=== PATIENT | female | born 1930 | race Hispanic/Latino ===

== ENCOUNTER 2018-04-13 12:44 | Observation (INO) | payer MEDICARE ==
[~2018-04-13] VITALS: Ht 149.9 cm; Wt 89.9 kg
[2018-04-13 00:20] VITALS: BP 123/61
[2018-04-13 13:09] LABS: BASOPHILS % (AUTO) 0.4 % (0.0-5.0); EOSINOPHILS % (AUTO) 2.4 % (0.0-8.0); HEMATOCRIT 31.3 % (36-48); LYMPHOCYTES % (AUTO) 14.8 % (21.0-51.0); MEAN CORPUSCULAR HEMOGLOBIN 28.1 pg (27.0-33.0); MEAN CORPUSCULAR HGB CONC 32.9 g/dL (32.0-36.0); MEAN CORPUSCULAR VOLUME 85.4 fL (79-99); MONOCYTES % (AUTO) 6.8 % (3.0-13.0); NEUTROPHILS % (AUTO) 75.6 % (40.0-77.0); PLATELET COUNT (AUTO) 176 K/uL (130-400); RED BLOOD CELL COUNT(AUTO) 3.66 MIL/uL (4.00-5.50); WHITE BLOOD COUNT (AUTO) 6.4 K/uL (4.8-10.8)
[2018-04-13 13:25] LABS: POTASSIUM 4.5 mmol/L (3.5-5.1)
[2018-04-13 13:39] LABS: ALBUMIN 3.5 g/dL (3.5-5.0); BILIRUBIN,TOTAL 0.4 mg/dL (0.2-1.0); TOTAL PROTEIN, SERUM 7.6 g/dL (6.0-8.3)
[2018-04-13] MEDS ORDERED: METHYLPREDNISOLONE SOD SUCC 125MG/2ML VIAL ONE (13:45)
[2018-04-13] MEDS ORDERED: ASPIRIN 81MG TAB.CHEW ONE (14:50)
[2018-04-13] MEDS ORDERED: IPRATROPIUM/ALBUTEROL SULFATE 3 ML SOLUTION IH ONE (15:00)
[2018-04-13 16:00] VITALS: BP 124/63
[2018-04-13] MEDS ORDERED: ACETAMINOPHEN 325 MG TAB PO SCH (17:00)
[2018-04-13] MEDS ORDERED: ACETAMINOPHEN 325 MG TAB PO PRN (17:30)
[2018-04-13] MEDS: PANTOPRAZOLE SODIUM 40 MG TABLET.DR PO SCH (17:35)
[2018-04-13] MEDS ORDERED: ISOS10TA2 PO (19:15)
[2018-04-13] MEDS ORDERED: LEVO75 PO (19:15)
[2018-04-13] MEDS ORDERED: MAGN400T40 PO (19:15)
[2018-04-13] MEDS ORDERED: METO-408 PO (19:15)
[2018-04-13] MEDS ORDERED: FURO20TA4 PO (19:15)
[2018-04-13] MEDS ORDERED: LIDO700A30 TP (19:15)
[2018-04-13] MEDS ORDERED: MONT10TA24 PO (19:19)
[2018-04-13] MEDS ORDERED: NITR0.4T50 PO (19:19)
[2018-04-13] MEDS ORDERED: OLOP2.5D5 OU (19:23)
[2018-04-13] MEDS ORDERED: OMEP20CA10 PO (19:23)
[2018-04-13 19:25] VITALS: BP 137/65
[2018-04-13] MEDS ORDERED: CYCL30DR OU (19:28)
[2018-04-13] MEDS ORDERED: ALBU90AE IH (19:28)
[2018-04-13] MEDS ORDERED: SERT50TA12 PO (19:28)
[2018-04-13] MEDS ORDERED: PROP10DR4 (19:29)
[2018-04-13] MEDS ORDERED: ACET-2743 PO (19:42)
[2018-04-13] MEDS ORDERED: fluticasone (19:42)
[2018-04-13] MEDS ORDERED: ERGO500014 PO (19:42)
[2018-04-13 19:43] LABS: CREATINE KINASE, TOTAL 88 U/L (21-232); MYOGLOBIN 84 ng/mL (10-92); TROPONIN I < 0.04 ng/mL (0.00-0.06)
[2018-04-13] MEDS ORDERED: MULT-1203 PO (19:44)
[2018-04-13] MEDS ORDERED: APIX2.5T PO (21:03)
[2018-04-14 04:12] VITALS: BP 126/57
[2018-04-14 05:41] LABS: HEMATOCRIT 30.7 % (36-48); MEAN CORPUSCULAR HEMOGLOBIN 27.5 pg (27.0-33.0); MEAN CORPUSCULAR HGB CONC 32.3 g/dL (32.0-36.0); MEAN CORPUSCULAR VOLUME 85.1 fL (79-99); PLATELET COUNT (AUTO) 146 K/uL (130-400); RED BLOOD CELL COUNT(AUTO) 3.61 MIL/uL (4.00-5.50); WHITE BLOOD COUNT (AUTO) 6.7 K/uL (4.8-10.8)
[2018-04-14 05:57] LABS: ALBUMIN 3.2 g/dL (3.5-5.0); BILIRUBIN,TOTAL 0.3 mg/dL (0.2-1.0); POTASSIUM 4.5 mmol/L (3.5-5.1); TOTAL PROTEIN, SERUM 7.2 g/dL (6.0-8.3)
[2018-04-14 07:00] VITALS: BP 134/70
[2018-04-14] MEDS: PANTOPRAZOLE SODIUM 40 MG TABLET.DR PO SCH (09:00)
== END 2018-04-14 09:35 | disposition home or self-care (01) ==
LOC: EDH 12:44 → EDHIP 14:50 → 3DH 15:56
PROVIDERS: ADMIT Internal Medicine Nephrology; ATTEND Internal Medicine Nephrology
DX: R07.89 Other chest pain (principal); I10 Essential (primary) hypertension; J84.10 Pulmonary fibrosis, unspecified; M19.90 Unspecified osteoarthritis, unspecified site; I48.91 Unspecified atrial fibrillation; E03.9 Hypothyroidism, unspecified; H91.90 Unspecified hearing loss, unspecified ear; F41.1 Generalized anxiety disorder; Z95.0 Presence of cardiac pacemaker; Z96.653 Presence of artificial knee joint, bilateral; Z88.0 Allergy status to penicillin
CPT/HCPCS: 36415 ×2; 71045; 80053 ×2; 82550; 83874; 83880; 84484 ×2; 85025; 85027; 93005; 94640; 99285; G0378 ×19; J2930; G0008; G0009

== ENCOUNTER → 2018-05-12 | Outpatient (CLI) | payer MEDICARE ==
[~2018-05-12] MED LIST: ACET-2743 PO; ALBU90AE IH; APIX2.5T PO; CYCL30DR OU; ERGO500014 PO; FURO20TA4 PO; ISOS10TA2 PO; LEVO75 PO; LIDO700A30 TP; MAGN400T40 PO; METO-408 PO; MONT10TA24 PO; MULT-1203 PO; NITR0.4T50 PO; OLOP2.5D5 OU; OMEP20CA10 PO; PROP10DR4; SERT50TA12 PO; fluticasone
== END | disposition home or self-care (01) ==
LOC: RAH 09:13
PROVIDERS: ATTEND Internal Medicine
DX: K22.8 Other specified diseases of esophagus (principal); K46.9 Unspecified abdominal hernia without obstruction or gangrene; K21.9 Gastro-esophageal reflux disease without esophagitis
CPT/HCPCS: 74240

== ENCOUNTER 2019-04-25 12:32 | Emergency (ER) | payer MEDICARE ==
[~2019-04-25 12:32] MED LIST changes: -ALBU90AE IH; +ASPI-555 PO; +CALC-1038 PO; +CYAN250014 PO; -ERGO500014 PO; +FOLI1TAB15 PO; -FURO20TA4 PO; -ISOS10TA2 PO; -LEVO75 PO; +LEVO88TA7 PO; +MAGN250T10 PO; -MAGN400T40 PO; +OMEP-50 PO; -OMEP20CA10 PO; +VALS40TA11 PO
[2019-04-25 13:43] LABS: BASOPHILS % (AUTO) 0.4 % (0.0-5.0); HEMATOCRIT 35.7 % (36-48); LYMPHOCYTES % (AUTO) 16.7 % (21.0-51.0); MEAN CORPUSCULAR HEMOGLOBIN 29.7 pg (27.0-33.0); MEAN CORPUSCULAR HGB CONC 33.9 g/dL (32.0-36.0); MEAN CORPUSCULAR VOLUME 87.5 fL (79-99); NEUTROPHILS % (AUTO) 71.9 % (40.0-77.0); PLATELET COUNT (AUTO) 143 K/uL (130-400); RED BLOOD CELL COUNT(AUTO) 4.08 MIL/uL (4.00-5.50); RED CELL DISTRIBUTION WIDTH 15.4 % (11.0-15.5); WHITE BLOOD COUNT (AUTO) 6.6 K/uL (4.8-10.8)
[2019-04-25 13:51] LABS: POTASSIUM 5.1 mmol/L (3.5-5.1)
[2019-04-25 14:02] LABS: ALBUMIN 3.2 g/dL (3.5-5.0); BILIRUBIN,TOTAL 0.5 mg/dL (0.2-1.0)
[2019-04-25 14:44] LABS: PARTIAL THROMBOPLASTIN TIME 26.7 SEC (26.3-35.5); PROTHROMBIN TIME 10.3 SEC (9.6-11.6)
[2019-04-25 15:14] LABS: APPEARANCE,URINE SL CLOUDY (CLEAR); BILIRUBIN,URINE SMALL (NEGATIVE); COLOR,URINE YELLOW (YELLOW); GLUCOSE, URINE (UA) NEGATIVE (NEGATIVE); KETONES,URINE 5 mg/dL (NEGATIVE); LEUKOCYTE ESTERASE ,URINE MODERATE (NEGATIVE); NITRATE,URINE NEGATIVE (NEGATIVE); OCCULT BLOOD,URINE NEGATIVE (NEGATIVE); PH,URINE 5.5 (5.0-8.0); PROTEIN,URINE NEGATIVE (NEGATIVE); UROBILINOGEN,URINE 0.2 mg/dL (0.2-1.0)
[2019-04-25 15:17] LABS: BACTERIA,URINE Few /HPF (None Seen); RBC,URINE None Seen /HPF (0-1); SQUAMOUS EPITHELIAL CELL,UR 0-2 /HPF (0-2)
[2019-04-25] MEDS ORDERED: NITROFURANTOIN MONOHYD/M-CRYST 100 MG CAPSULE PO ONE (15:38)
== END 2019-04-25 15:49 | disposition home or self-care (01) ==
LOC: EDH 12:32
DX: S20.221A Contusion of right back wall of thorax, initial encounter (principal); N39.0 Urinary tract infection, site not specified; M25.551 Pain in right hip; I50.9 Heart failure, unspecified; M19.90 Unspecified osteoarthritis, unspecified site; K21.9 Gastro-esophageal reflux disease without esophagitis; Z90.49 Acquired absence of other specified parts of digestive tract; Z88.0 Allergy status to penicillin; Z88.1 Allergy status to other antibiotic agents; W07.XXXA Fall from chair, initial encounter; Y93.89 Activity, other specified; Y92.89 Other specified places as the place of occurrence of the external cause; Y99.8 Other external cause status
CPT/HCPCS: 36415; 71045; 73502; 80053; 81001; 82550; 84484; 85025; 85610; 85730; 87088; 93005

== ENCOUNTER 2019-05-04 13:56 | Emergency (ER) | payer MEDICARE | END 2019-05-04 15:51 | disposition home or self-care (01) | LOC: EDH 13:56 | DX: L03.116 Cellulitis of left lower limb (principal); M79.672 Pain in left foot; K21.9 Gastro-esophageal reflux disease without esophagitis; M19.90 Unspecified osteoarthritis, unspecified site; I50.9 Heart failure, unspecified; Z88.0 Allergy status to penicillin; Z88.8 Allergy status to other drugs, medicaments and biological substances; Z88.1 Allergy status to other antibiotic agents | CPT/HCPCS: 73630 ==

== ENCOUNTER 2019-06-04 12:33 | Emergency (ER) | payer MEDICARE ==
[~2019-06-04 12:33] MED LIST changes: +OMEP-298 PO; -OMEP-50 PO
[2019-06-04] MEDS ORDERED: ACETAMINOPHEN-CODEINE 300/30MG TAB ONE (12:42)
== END 2019-06-04 14:19 | disposition home or self-care (01) ==
LOC: EDH 12:33
DX: S22.32XA Fracture of one rib, left side, initial encounter for closed fracture (principal); K21.9 Gastro-esophageal reflux disease without esophagitis; I50.9 Heart failure, unspecified; J84.10 Pulmonary fibrosis, unspecified; M41.9 Scoliosis, unspecified; Z88.1 Allergy status to other antibiotic agents; Z88.0 Allergy status to penicillin; Z88.8 Allergy status to other drugs, medicaments and biological substances; Z98.890 Other specified postprocedural states; Z90.49 Acquired absence of other specified parts of digestive tract; W19.XXXA Unspecified fall, initial encounter; Y93.89 Activity, other specified; Y92.89 Other specified places as the place of occurrence of the external cause; Y99.8 Other external cause status
CPT/HCPCS: 71250; 74176

== ENCOUNTER 2019-11-25 20:38 | Emergency (ER) | payer MEDICARE ==
[~2019-11-25 20:38] MED LIST changes: -MONT10TA24 PO; +MONT10TA26 PO; -OMEP-298 PO; +OMEP20CA12 PO
[2019-11-25 21:32] LABS: BASOPHILS % (AUTO) 0.4 % (0.0-5.0); EOSINOPHILS % (AUTO) 4.7 % (0.0-8.0); HEMATOCRIT 33.7 % (36-48); LYMPHOCYTES % (AUTO) 13.1 % (21.0-51.0); MEAN CORPUSCULAR HEMOGLOBIN 29.5 pg (27.0-33.0); MEAN CORPUSCULAR HGB CONC 32.3 g/dL (32.0-36.0); MEAN CORPUSCULAR VOLUME 91.1 fL (79-99); MONOCYTES % (AUTO) 5.8 % (3.0-13.0); NEUTROPHILS % (AUTO) 75.7 % (40.0-77.0); PLATELET COUNT (AUTO) 152 K/uL (130-400); RED CELL DISTRIBUTION WIDTH 13.1 % (11.0-15.5); WHITE BLOOD COUNT (AUTO) 7.2 K/uL (4.8-10.8)
[2019-11-25] MEDS ORDERED: FUROSEMIDE 10 MG/ML 4ML VIAL ONE (21:53)
[2019-11-25 21:54] LABS: PARTIAL THROMBOPLASTIN TIME 28.2 SEC (26.3-35.5); PROTHROMBIN TIME 10.8 SEC (9.6-11.6)
[2019-11-25] MEDS ORDERED: FUROSEMIDE 10 MG/ML 2ML VIAL ONE (21:57)
[2019-11-25 21:59] LABS: CREATININE 1.1 mg/dL (0.5-1.5); POTASSIUM 3.9 mmol/L (3.5-5.1)
[2019-11-25 22:03] LABS: ALBUMIN 3.5 g/dL (3.5-5.0); BILIRUBIN,TOTAL 0.4 mg/dL (0.2-1.0); TOTAL PROTEIN, SERUM 7.2 g/dL (6.0-8.3)
[2019-11-25 22:13] LABS: B-TYPE NATRIURETIC PEPTIDE 338 pg/mL (0-100)
== END 2019-11-26 00:34 | disposition home or self-care (01) ==
LOC: EDH 20:38
DX: I50.9 Heart failure, unspecified (principal); R06.00 Dyspnea, unspecified; K21.9 Gastro-esophageal reflux disease without esophagitis; M19.90 Unspecified osteoarthritis, unspecified site; M41.9 Scoliosis, unspecified; Z88.0 Allergy status to penicillin; Z88.1 Allergy status to other antibiotic agents; Z88.8 Allergy status to other drugs, medicaments and biological substances; Z90.49 Acquired absence of other specified parts of digestive tract; Z98.890 Other specified postprocedural states
CPT/HCPCS: 36415; 71045; 80053; 82550; 83880; 84484; 85025; 85610; 85730; 93005; 96374; 99285; J1940 ×2

== ENCOUNTER 2019-12-03 17:34 | Emergency (ER) | payer MEDICARE ==
[2019-12-03] MEDS ORDERED: METHYLPREDNISOLONE SOD SUCC 40MG/ML 1ML ONE (20:04)
[2019-12-03] MEDS ORDERED: FUROSEMIDE 10 MG/ML 2ML VIAL ONE (20:04)
[2019-12-03] MEDS ORDERED: FUROSEMIDE 10 MG/ML 4ML VIAL ONE (20:04)
[2019-12-03] MEDS ORDERED: IPRATROPIUM/ALBUTEROL SULFATE 3 ML SOLUTION IH ONE (20:21)
[2019-12-03] MEDS ORDERED: BENZONATATE 100 MG CAPSULE PO ONE (22:30)
== END 2019-12-03 23:26 | disposition home or self-care (01) ==
LOC: EDH 17:34
DX: I50.23 Acute on chronic systolic (congestive) heart failure (principal); R06.00 Dyspnea, unspecified; J84.10 Pulmonary fibrosis, unspecified; K21.9 Gastro-esophageal reflux disease without esophagitis; M19.90 Unspecified osteoarthritis, unspecified site; Z90.49 Acquired absence of other specified parts of digestive tract; Z88.0 Allergy status to penicillin; Z88.8 Allergy status to other drugs, medicaments and biological substances; Z88.1 Allergy status to other antibiotic agents; Z88.6 Allergy status to analgesic agent
CPT/HCPCS: 36415; 71045; 80053; 82550; 83880; 84484 ×2; 85025; 85610; 85730; 93005 ×2; 94640; 96374; 96375; 99285; J1940 ×2; J2920